=== PATIENT | female | born 1965 | race Caucasian/White ===

== ENCOUNTER → 2024-02-01 15:12 | Outpatient (REF) | payer OTHER, SELFPAY | LOC: MRI 3T 15:12 | PROVIDERS: ATTENDING PHYSICIAN Radiology Radiation Oncology; FAMILY PHYSICIAN Student in an Organized Health Care Education/Training Program | DX: C50.911 Malignant neoplasm of unspecified site of right female breast (principal) | CPT/HCPCS: 77049; A9585 ==

== ENCOUNTER 2024-04-30 06:30 | Outpatient (RCR) | payer OTHER, SELFPAY | END 2024-04-30 23:59 | disposition home or self-care (01) | LOC: RPT 06:30 | PROVIDERS: ATTENDING PHYSICIAN Surgery; FAMILY PHYSICIAN Nurse Practitioner Family | DX: I97.2 Postmastectomy lymphedema syndrome (principal); C50.411 Malignant neoplasm of upper-outer quadrant of right female breast; Z73.6 Limitation of activities due to disability; R29.3 Abnormal posture; L90.5 Scar conditions and fibrosis of skin; R53.0 Neoplastic (malignant) related fatigue | CPT/HCPCS: 97140; 97162; 97535 ==

== ENCOUNTER 2024-05-26 15:59 | Outpatient (RCR) | payer OTHER, SELFPAY | END 2024-05-26 23:59 | disposition home or self-care (01) | LOC: RPT 15:59 | PROVIDERS: ATTENDING PHYSICIAN Surgery; FAMILY PHYSICIAN Nurse Practitioner Family | DX: I97.2 Postmastectomy lymphedema syndrome (principal); C50.411 Malignant neoplasm of upper-outer quadrant of right female breast; Z73.6 Limitation of activities due to disability | CPT/HCPCS: 97110; 97140; 97535 ==

== ENCOUNTER 2024-06-11 16:12 | Outpatient (RCR) | payer OTHER, SELFPAY | END 2024-06-12 06:41 | disposition home or self-care (01) | LOC: RPT 16:12 | PROVIDERS: ATTENDING PHYSICIAN Surgery; FAMILY PHYSICIAN Nurse Practitioner Family | DX: I97.2 Postmastectomy lymphedema syndrome (principal); C50.411 Malignant neoplasm of upper-outer quadrant of right female breast; Z73.6 Limitation of activities due to disability; R29.3 Abnormal posture; L90.5 Scar conditions and fibrosis of skin; R53.0 Neoplastic (malignant) related fatigue | CPT/HCPCS: 97140; 97535 ==

== ENCOUNTER → 2024-07-28 12:57 | Outpatient (REF) | payer OTHER, SELFPAY | LOC: HWWDC 12:57 | PROVIDERS: ATTENDING PHYSICIAN Obstetrics & Gynecology; FAMILY PHYSICIAN Nurse Practitioner Family; OTHER PHYSICIAN Internal Medicine; REFERRING PHYSICIAN Surgery | DX: Z12.31 Encounter for screening mammogram for malignant neoplasm of breast (principal) | CPT/HCPCS: 77063; 77067 ==

== ENCOUNTER → 2024-08-01 10:25 | Outpatient (REF) | payer OTHER, SELFPAY | LOC: WDC 10:25 | PROVIDERS: ATTENDING PHYSICIAN Obstetrics & Gynecology; FAMILY PHYSICIAN Nurse Practitioner Family | DX: R92.8 Other abnormal and inconclusive findings on diagnostic imaging of breast (principal) | CPT/HCPCS: 76642 ==